=== PATIENT | female | born 1945 | race Caucasian/White ===

== ENCOUNTER 2016-10-04 16:48 | Emergency (ER) | payer MEDICARE, OTHER ==
--- NOTE | ~2016-10-04 | CN ---
Consultation Report [facility] [address] [place]. [address] NAME: AVELINA RUELAS : 43 STATUS : ADM IN [facility]#: [id number] AGE: 70 ADM/REG DATE : 10/04/16 MR#: [id number] REPORT SERV DATE: 10/05/16 DICTATED BY: TORREY ESPOSITO DATE: 10/04/16 REPORT STATUS : Draft TRANSCRIBED BY: JUSTINE DATE: 10/04/16 DATE OF CONSULTATION: 10/04/2016 INDICATION FOR ADMISSION: Chest pressure and low blood pressure. HISTORY OF PRESENT ILLNESS: Ms. Ruelas is a 70-year-old female who dialyzes Monday, Monday, Monday at [facility], left AV fistula. She developed severe weakness and her daughter checked her blood pressure and found it to be 78/36. She was having chest pressure and some diaphoresis at that time. She was transported by EMS to the [facility] Emergency Room. She indicates difficulty with a recent cough which is nonproductive, weakness, decreased appetite, and has had chest pressure intermittently over one week. She also has had coronary artery disease with four-vessel CABG in 2003. PAST MEDICAL HISTORY: 1. End-stage renal disease, dialyzing Monday, Monday, Monday at [facility]. 2. Type 2 diabetes mellitus. 3. Peripheral vascular disease with lower extremity atherectomies and stenting. 4. Coronary artery disease, status post CABG x4 vessels in 2003. 5. Remote [place] congestive heart failure. 6. History of DVT, dyslipidemia, gastroesophageal reflux disease, colon polyps, hiatal hernia, mitral valve replacement, hysterectomy, cataract surgery bilaterally, and anemia. SOCIAL HISTORY: The patient currently denies any tobacco use, cigarette use, and illicit drug use. She is disabled but has good family support. FAMILY HISTORY: Mother of kidney failure but did not dialyze, two aunts with kidney failure, multiple family members with diabetes, and hypertension. REVIEW OF SYSTEMS: HEENT: No change in visual acuity. No epistaxis. No otic infection. No pharyngitis. PULMONARY: No shortness of breath. Cough nonproductive. No hemoptysis. CARDIAC: Upper chest pressure. Denies palpitations but has been weak. Earlier found to be hypotensive with elevation of troponin. GI: Intermittent nausea. No vomiting. No melena. Also has intermittent constipation. : Voids minimally. No gross hematuria. MUSCULOSKELETAL: Pain in lower extremities. INTEGUMENT: No rash. No itching. NEUROLOGIC: No lateralizing weakness. No seizure activity. Remainder of 12-point review of systems is negative. PHYSICAL EXAMINATION: VITAL SIGNS: Blood pressure 130/57, temperature 97.8, and respiratory rate 14. GENERAL: Chronically ill female. Alert, conversive. Consultation Report [facility] [address] [place]. [address] NAME: AVELINA RUELAS : 43 STATUS : ADM IN PAT#: [id number] AGE: 70 ADM/REG DATE : 10/04/16 MR#: [id number] REPORT SERV DATE: 10/05/16 DICTATED BY: TORREY ESPOSITO DATE: 10/04/16 REPORT STATUS : Draft TRANSCRIBED BY: JUSTINE DATE: 10/04/16 HEENT: Eyes, no scleral icterus. Pupils equal, reactive to light. Extraocular movement intact. Nares patent. No discharge. Throat, no injection. Mucous membranes moist. NECK: No thyromegaly or masses, questionable soft carotid bruits. CHEST/LUNGS: Late crackles at bases posteriorly. No wheezing. No dullness to percussion. CARDIAC: Regular rate and rhythm, 2/6 systolic ejection murmur. No gallop. No rub. ABDOMEN: Obese, normoactive bowel sounds. Nontender. No hepatosplenomegaly. BREASTS: Not performed. PELVIC: Not performed. RECTAL: Not performed. EXTREMITIES: Left upper extremity fistula with good bruit, thrill. Lower extremities with no edema. No calf tenderness. DERMIS: No rash. No skin lesions. NEUROLOGIC: Cranial nerves intact. No lateralizing weakness. IMPRESSION: 1. Chest pain with elevated troponin. 2. Coronary artery disease with remote coronary artery bypass grafting 4 vessels in 2003. 3. End-stage renal disease, dialyzing Monday, Monday, Monday at [facility] by left upper extremity AV fistula. 4. Type 2 diabetes mellitus. 5. Severe lower extremity peripheral vascular disease with prior atherectomies and stenting. 6. History of congestive heart failure. 7. Remote DVT. 8. Hyperlipidemia. 9. Gastroesophageal reflux disease. 10.Colon polyps. 11.History of mitral valve replacement. 12.Anemia. PLAN: 1. Labs. 2. Hemodialysis on 10/05/2016. 3. [place] pathology evaluation. CG/MODL Torrey Esposito M.D. / [id number] CC: Consultation Report [facility] [address] [address] NAME: AVELINA RUELAS : 43 STATUS : ADM IN [facility]#: [id number] AGE: 70 ADM/REG DATE : 10/04/16 MR#: [id number] REPORT SERV DATE: 10/05/16 DICTATED BY: TORREY ESPOSITO DATE: 10/04/16 REPORT STATUS : Draft TRANSCRIBED BY: MODL DATE: 10/04/16 Courtney Heaton II
--- NOTE | ~2016-10-04 | DS ---
Discharge Summary [facility] [address] [place]. [address] NAME: AVELINA ROYAL : 43 STATUS : DIS IN PAT#: [id number] AGE: 70 ADM/REG DATE : 10/04/16 MR#: [id number] REPORT SERV DATE: 10/18/16 DICTATED BY: BRIAN SENA JR DATE: 10/17/16 REPORT STATUS : Draft TRANSCRIBED BY: JUSTINE DATE: 10/17/16 Data Collection from hospitalization DISCHARGE DIAGNOSES: 1. End-stage renal disease. 2. Atypical chest pain-resolved. 3. Atherosclerotic cardiovascular disease. 4. Peripheral vascular disease. 5. History of remote chronic obstructive pulmonary disease. 6. Hypotension-resolved. 7. Type 2 diabetes mellitus. 8. History of myocardial infarction. 9. History of congestive heart failure. 10.Peripheral vascular disease. CONSULTATION: Dr. Ata Aranda. PROCEDURES PERFORMED: Cardiac catheterization, 10/06/2016. MEDICATIONS: Aspirin 325 mg with supper, PhosLo 1334 mg with meals, Plavix 75 mg with supper, Colace 100 mg daily, Pepcid 40 mg daily, Neurontin 100 mg at bedtime, NovoLog injection insulin as instructed, Lantus 20 units subcutaneously at bedtime, Mexitil 150 mg every eight hours, Zantac 300 mg with lunch, Crestor 40 mg at bedtime, Senokot 17.2 mg daily. CONDITION AT DISCHARGE: Stable. DISPOSITION: The patient was discharged home on a renal diet with activities as instructed. She would follow up as needed with Cardiology. HOSPITAL COURSE: This is a 70-year-old female, who dialyzes on Mondays, Wednesdays, and Fridays via a left AV fistula. She developed severe weakness and her daughter checked her blood pressure and it was found to be 78/36. She was having chest pressure and some diaphoresis at that time. She was transported via EMS to the [facility] emergency room. She had difficulty with recent cough, which was nonproductive and some weakness and decreased appetite. She also had some chest pressure intermittently over one week. She also had had coronary artery disease with a history of four-vessel coronary artery bypass grafting in 2003. She was admitted to the hospital at this time for further evaluation and treatment. Upon admission, troponin was elevated. Hemodialysis therapy was going to be performed the following day. Labs were going to be obtained. The following day, the patient was seen by Dr. Ata Aranda. The patient had been on hemodialysis over the past six years. She has peripheral vascular disease with previous stenting by Dr. Souza. She had also undergone previous coronary artery bypass grafting and mitral valve clipping for mitral regurgitation. She does have occasional shortness of breath and gets very little in the way of walking because of weakness in her legs and hips. Her EKG revealed sinus rhythm with leftward axis and nonspecific ST-T wave changes, associated with incomplete left bundle-branch block pattern. Chest x-ray showed cardiomegaly. Creatinine was 7.06. Serial troponins would be Discharge Summary [address] [address] NAME: AVELINA ROYAL : 43 STATUS : DIS IN PAT#: [id number] AGE: 70 ADM/REG DATE : 10/04/16 MR#: [id number] REPORT SERV DATE: 10/18/16 DICTATED BY: BRIAN SENA JR DATE: 10/17/16 REPORT STATUS : Draft TRANSCRIBED BY: JUSTINE DATE: 10/17/16 checked as well as EKGs and an echocardiogram. It was felt the patient would need to undergo a cardiac catheterization. Echocardiogram was performed. On the , she had no edema. She had good pain control. She did have PVCs. The patient was taken to the cardiac trestle mainternance laborer, where she underwent the above-mentioned procedure. She tolerated this well and there were no complications. She was found to have severe diffuse right coronary artery disease and 100% distal LMCA occlusion, which was chronic. Left ventricular end-diastolic pressure was 27. There was no significant gradient across the aortic valve. The DUDLEY to the LAD was patent with poor runoff. Saphenous vein [id number] with patent saphenous vein graft to the posterior descending artery was occluded. Medical therapy was recommended for diffuse coronary artery disease, not favorable for percutaneous coronary intervention. Discharge planning was performed. On 10/07/2016, she was alert and cooperative. She continued to do well. Hemodialysis therapy was performed. Discharge instructions were given. Due to her improved and stable condition, she was discharged home with the above-stated instructions. Information collected by: Anahi Parrish I submit the above information as my discharge summary. RUTH/MODL Brian Sena Jr, M.D. / [id number] CC: Courtney Heaton II, WALLACE F. Robert Berglund, M.D.
--- NOTE | ~2016-10-04 | CN ---
Consultation Report [facility] [address] [place]. [address] NAME: AVELINA ROYAL : 43 STATUS : ADM IN PAT#: [id number] AGE: 70 ADM/REG DATE : 10/04/16 MR#: [id number] REPORT SERV DATE: 10/05/16 DICTATED BY: ELENA ARANDA DATE: 10/04/16 REPORT STATUS : Draft TRANSCRIBED BY: MODShannon DATE: 10/04/16 DATE OF CONSULTATION: 10/04/2016 HISTORY OF PRESENT ILLNESS: This 70-year-old white female, nonsmoker, who was admitted for weakness and occasional chest discomfort. Her troponin is mildly elevated at 1.35 with serial levels pending; this lady is complicated in that she has chronic kidney disease and has been on hemodialysis for the last six years, probably due to diabetic nephropathy. She also has peripheral vascular disease with previous stenting by Dr. Souza and has had previous bypass grafting for coronary artery disease as well as previous myocardial infarction. At [place], she underwent mitral valve clipping for mitral regurgitation. She has occasional shortness of breath and gets very little in the way of walking because of weakness and pain in her legs and hips. Her EKG shows sinus rhythm with leftward axis and nonspecific ST-T wave changes associated with incomplete left bundle branch block pattern. Chest x-ray shows cardiomegaly. BUN is 36 today with a creatinine of 7.06. Blood sugar of 229 mg percent. Troponin level is 1.35. White blood cell count 8.4 thousand, platelet count 134,000, hematocrit 37%. At the present time, she denies short of breath, having chest pain. She has multiple family members in the room. DNR status is noted. She sees Dr. Sheth as her pewter caster and Dr. Love as her primary care provider, and Dr. Menard is her warp bleaching vat tender. There is a family history of stroke. PREVIOUS SURGERIES: Include her bypass grafting, mitral valve clipping, and peripheral stenting by Dr. Souza. She is intolerant to sulfa drugs, Rocephin, and kiwi plant with anaphylaxis and swollen mouth eating that fruit. She is a and has three healthy children, all grown. PHYSICAL EXAMINATION: VITAL SIGNS: Blood pressure 130/60. HEENT: Head is normocephalic. Eyes, PERRLA. Nose has no epistaxis. SKIN: Clear of ulceration. NECK: Supple. CHEST: Clear. HEART: Has regular rhythm. There is a faint grade 1/6 systolic murmur at the lower left sternal border. I do not hear an S3 gallop tonight. ABDOMEN: Overweight. I do not feel a fluid wave. EXTREMITIES: Has no clubbing, edema, or cyanosis. NEUROLOGIC: Intact. CLINICAL IMPRESSION: 1. Chest discomfort with mild troponin elevation-known coronary artery disease with previous bypass grafting and myocardial infarction. 2. End-stage renal disease, on hemodialysis. 3. Diabetes mellitus with diabetic nephropathy. Consultation Report [address] [place]. [address] NAME: AVELINA ROYAL : 43 STATUS : ADM IN [facility]#: [id number] AGE: 70 ADM/REG DATE : 10/04/16 MR#: [id number] REPORT SERV DATE: 10/05/16 DICTATED BY: ELENA ARANDA DATE: 10/04/16 REPORT STATUS : Draft TRANSCRIBED BY: JUSTINE DATE: 10/04/16 4. Peripheral vascular disease. 5. History of mitral valve clipping for mitral regurgitation. 6. Overweight. RECOMMENDATIONS: 1. Serial troponins. 2. Check EKGs and an echocardiogram. 3. Dr. Menard will continue to follow her when he returns to call in the morning. She is comfortable tonight. RB/TENZINL Elena Aranda M.D. / [id number] CC: Courtney Heaton II, WALLACE F.
[~2016-10-04 16:48] MED LIST: ASA5GR PO; ASCRIPTIN PO; COREG12 PO; COREG25 PO; COREG3 PO; COREG6 PO; DEMA20 PO; DILT-XR180 MG PO; DILTIAZEM; FISH-EPA1000 MG PO; HALF81 PO; LANTUS SC; NEUR100 PO; NEUR300 PO; NEUR400 PO; NITROII20C TOP; NITROII30C TOP; NITROSTAT0.4 MG SL; NORV5 PO; NOVOLOG SC; PHOSLO 667 MG PO; PHOSLO PO; PLAVIX PO; PRILO PO; PRIN10 PO; PROCRIT; RANITIDINE300 MG PO; TANDEM PLUS OR; VYTORIN 10/40 T1 TAB PO; ZANTAC 150 PO; ZOCOR40 PO
[2016-10-04 17:24] LABS: BASOPHILS 0.2 %; BASOPHILS ABSOLUTE 0.02 10/3/uL (0.0-0.16); EOSINOPHILS 1.5 %; EOSINOPHILS ABSOLUTE 0.13 10/3/uL (0.0-0.53); ER CBC TAT 0 Hrs 05 Mins; HEMOGLOBIN 11.9 g/dL (12.0-16.0); IMMATURE GRANULOCYTES 0.2 %; IMMATURE GRANULOCYTES ABSOLUTE 0.02 10/3/uL (0.0-0.11); LYMPHOCYTES 11.7 %; LYMPHOCYTES ABSOLUTE 0.98 10/3/uL (0.67-4.30); MANUAL DIFF NO %; MEAN CORPUS HGB CONC 32.2 g/dL (32.0-36.0); MEAN CORPUSCULAR HEMOGLOB 28.7 pg (26.0-34.0); MEAN CORPUSCULAR VOLUME 89.2 fL (80-100); MEAN PLATELET VOLUME 9.7 fL (9.2-13.0); MONOCYTES 8.6 %; MONOCYTES ABSOLUTE 0.72 10/3/uL (0.21-1.20); NEUTROPHILS 77.8 %; NEUTROPHILS ABSOLUTE 6.53 10/3/uL (2.02-8.40); PLATELET COUNT 134 10/3/uL (150-400); RED CELL COUNT 4.15 10/6/uL (4.0-5.6); WHITE BLOOD CELLS 8.4 10/3/uL (4.5-10.5)
[2016-10-04 17:31] LABS: INTERNATIONAL NORMAL RATI 1.2 UNITS (-); PARTIAL THROMBO TIME 33.3 SEC (22.5-37.2); PROTIME (NOT ORD) 15.5 SEC (12.0-14.5)
[2016-10-04 17:39] LABS: BUN (BLOOD UREA NITROGEN) 36 MG/DL (6-23); CALCIUM, SERUM 8.8 MG/DL (8.5-10.4); CHLORIDE, SERUM 98 MMOL/L (96-112); CO2 (CARBON DIOXIDE) 30 MMOL/L (24-34); CREATININE 7.06 MG/DL (0.55-1.02); GFR AFRICAN AMERICAN 6 ML/MIN (>=60); GFR NON AFRICAN AMERICAN 5 ML/MIN (>=60); GLUCOSE, SERUM 229 MG/DL (60-99); POTASSIUM, SERUM 4.9 MMOL/L (3.5-5.3); SODIUM, SERUM 133 MMOL/L (135-148)
[2016-10-04 17:40] LABS: CHEST PAIN PROFILE TAT 0 Hrs 21 Mins; TROPONIN I 1.35 NG/ML (<0.05)
[2016-10-04] MEDS ORDERED: NOVOLOG SC (18:22)
[2016-10-04] MEDS ORDERED: PHOSLO PO (18:23)
[2016-10-04] MEDS ORDERED: LANTUS SC (18:23)
[2016-10-04] MEDS ORDERED: NEUR100 PO (18:24)
[2016-10-04] MEDS ORDERED: PLAVIX PO (18:24)
[2016-10-04] MEDS ORDERED: ASA5GR PO (18:24)
[2016-10-04] MEDS ORDERED: ZOCOR40 PO (18:24)
[2016-10-04] MEDS ORDERED: ZANTAC300 MG PO (18:25)
[2016-10-04] MEDS ORDERED: SENTAB PO (18:26)
[2016-10-04] MEDS ORDERED: DSS PO (18:27)
[2016-10-04 21:30] LABS: TROPONIN I 1.1 NG/ML (<0.05)
[2016-10-04 23:20] LABS: ULTRASENSITIVE TSH 0.902 MCIU/ML (0.358-3.740)
[2016-10-05 05:28] LABS: BASOPHILS 0.3 %; BASOPHILS ABSOLUTE 0.02 10/3/uL (0.0-0.16); EOSINOPHILS 2.8 %; EOSINOPHILS ABSOLUTE 0.21 10/3/uL (0.0-0.53); HEMATOCRIT 33.6 % (36.0-48.0); HEMOGLOBIN 10.7 g/dL (12.0-16.0); IMMATURE GRANULOCYTES 0.3 %; IMMATURE GRANULOCYTES ABSOLUTE 0.02 10/3/uL (0.0-0.11); LYMPHOCYTES 20.8 %; LYMPHOCYTES ABSOLUTE 1.53 10/3/uL (0.67-4.30); MEAN CORPUS HGB CONC 31.8 g/dL (32.0-36.0); MEAN CORPUSCULAR HEMOGLOB 28.5 pg (26.0-34.0); MEAN CORPUSCULAR VOLUME 89.4 fL (80-100); MEAN PLATELET VOLUME 9.7 fL (9.2-13.0); MONOCYTES 10.2 %; MONOCYTES ABSOLUTE 0.75 10/3/uL (0.21-1.20); NEUTROPHILS 65.6 %; NEUTROPHILS ABSOLUTE 4.84 10/3/uL (2.02-8.40); PLATELET COUNT 127 10/3/uL (150-400); RBC DISTRIBUTION WIDTH 14.9 % (12.0-16.0); RED CELL COUNT 3.76 10/6/uL (4.0-5.6); WHITE BLOOD CELLS 7.4 10/3/uL (4.5-10.5)
[2016-10-05 05:31] LABS: MANUAL DIFF NO %
[2016-10-05 05:53] LABS: ALBUMIN 3.1 G/DL (3.5-5.0); BUN (BLOOD UREA NITROGEN) 46 MG/DL (6-23); CALCIUM, SERUM 8.5 MG/DL (8.5-10.4); CHLORIDE, SERUM 96 MMOL/L (96-112); CO2 (CARBON DIOXIDE) 29 MMOL/L (24-34); CREATININE 7.79 MG/DL (0.55-1.02); GFR AFRICAN AMERICAN 5 ML/MIN (>=60); GFR NON AFRICAN AMERICAN 5 ML/MIN (>=60); GLUCOSE, SERUM 135 MG/DL (60-99); PHOSPHORUS, SERUM 6.5 MG/DL (2.5-4.5); POTASSIUM, SERUM 4.2 MMOL/L (3.5-5.3); SODIUM, SERUM 135 MMOL/L (135-148); TROPONIN I 1.03 NG/ML (<0.05)
[2016-10-06 05:54] LABS: BASOPHILS 0.3 %; BASOPHILS ABSOLUTE 0.02 10/3/uL (0.0-0.16); EOSINOPHILS 1.8 %; EOSINOPHILS ABSOLUTE 0.13 10/3/uL (0.0-0.53); HEMATOCRIT 34.9 % (36.0-48.0); HEMOGLOBIN 11.2 g/dL (12.0-16.0); IMMATURE GRANULOCYTES 0.1 %; IMMATURE GRANULOCYTES ABSOLUTE 0.01 10/3/uL (0.0-0.11); LYMPHOCYTES 19.1 %; LYMPHOCYTES ABSOLUTE 1.39 10/3/uL (0.67-4.30); MANUAL DIFF NO %; MEAN CORPUS HGB CONC 32.1 g/dL (32.0-36.0); MEAN CORPUSCULAR HEMOGLOB 28.8 pg (26.0-34.0); MEAN CORPUSCULAR VOLUME 89.7 fL (80-100); MEAN PLATELET VOLUME 9.7 fL (9.2-13.0); MONOCYTES 9.8 %; MONOCYTES ABSOLUTE 0.71 10/3/uL (0.21-1.20); NEUTROPHILS 68.9 %; PLATELET COUNT 139 10/3/uL (150-400); RED CELL COUNT 3.89 10/6/uL (4.0-5.6); WHITE BLOOD CELLS 7.3 10/3/uL (4.5-10.5)
[2016-10-06 06:06] LABS: CALCIUM, SERUM 8.6 MG/DL (8.5-10.4); CHLORIDE, SERUM 100 MMOL/L (96-112); CO2 (CARBON DIOXIDE) 26 MMOL/L (24-34); POTASSIUM, SERUM 4.5 MMOL/L (3.5-5.3); SODIUM, SERUM 134 MMOL/L (135-148)
[2016-10-06 06:07] LABS: BUN (BLOOD UREA NITROGEN) 33 MG/DL (6-23); CHOL/HDL RATIO(NOT ORDER) 3.7 (0-5); CHOLESTEROL 131 MG/DL (< 200); CREATININE 5.94 MG/DL (0.55-1.02); GFR AFRICAN AMERICAN 8 ML/MIN (>=60); GFR NON AFRICAN AMERICAN 7 ML/MIN (>=60); GLUCOSE, SERUM 83 MG/DL (60-99); HDL CHOLESTEROL 35 MG/DL (> 49); LDL CHOLESTEROL 73 MG/DL (< 130); NON-HDL CHOLESTEROL 96 MG/DL (< 160); TRIGLYCERIDE 115 MG/DL (< 150)
[2016-10-07 05:41] LABS: HEMATOCRIT 34.9 % (36.0-48.0); HEMOGLOBIN 11.3 g/dL (12.0-16.0); MEAN CORPUS HGB CONC 32.4 g/dL (32.0-36.0); MEAN CORPUSCULAR HEMOGLOB 28.8 pg (26.0-34.0); MEAN PLATELET VOLUME 9.8 fL (9.2-13.0); PLATELET COUNT 131 10/3/uL (150-400); RBC DISTRIBUTION WIDTH 15.2 % (12.0-16.0); RED CELL COUNT 3.92 10/6/uL (4.0-5.6); WHITE BLOOD CELLS 8.1 10/3/uL (4.5-10.5)
[2016-10-07 05:44] LABS: MANUAL DIFF YES %
[2016-10-07 06:13] LABS: BAND NEUTROPHILS 2 %; EOSINOPHILS 2 %; EOSINOPHILS ABSOLUTE (CALC) 0.16 10/3/uL (0.0-0.53); LYMPHOCYTES 18 %; LYMPHOCYTES ABSOLUTE (CALC) 1.46 10/3/uL (0.67-4.30); MONOCYTES 3 %; MONOCYTES ABSOLUTE (CALC) 0.24 10/3/uL (0.21-1.20); NEUTROPHILS ABSOLUTE (CALC) 6.24 10/3/uL (2.02-8.40); PLATELET ESTIMATE SLT DEC (ADEQUATE); RBC MORPHOLOGY NORM (NORMAL); SEGMENTED NEUTROPHIL (0) 75 %; TOTAL NUCLEATED CELLS 100; TOXIC GRANULATION 1+
[2016-10-07 06:53] LABS: CALCIUM, SERUM 8.5 MG/DL (8.5-10.4); CHLORIDE, SERUM 98 MMOL/L (96-112); CO2 (CARBON DIOXIDE) 25 MMOL/L (24-34); GFR AFRICAN AMERICAN 6 ML/MIN (>=60); GFR NON AFRICAN AMERICAN 5 ML/MIN (>=60); GLUCOSE, SERUM 93 MG/DL (60-99); SODIUM, SERUM 134 MMOL/L (135-148)
[2016-10-07 06:55] LABS: BUN (BLOOD UREA NITROGEN) 47 MG/DL (6-23); CREATININE 7.63 MG/DL (0.55-1.02); POTASSIUM, SERUM 5.5 MMOL/L (3.5-5.3)
[2016-10-07 07:20] LABS: ASCORBIC ACID (UR NOT ORDER) NEG (NEG); BILIRUBIN, URINE NEGATIVE (NEG); KETONE, URINE NEGATIVE (NEG); LEUKOCYTE ESTERASE(NOT OR MOD (NEG)
[2016-10-07 07:24] LABS: WBC (NOT ORDERED) (RFLEX) > 182 (0-5)
[2016-10-07] MEDS ORDERED: PEP20 PO (14:30)
[2016-10-07] MEDS ORDERED: LANTUS SC (14:32)
[2016-10-07] MEDS ORDERED: MEXITIL 150 MG150 MG PO (14:33)
[2016-10-07] MEDS ORDERED: CRESTOR40 MG PO (14:34)
== END 2016-10-07 15:12 | disposition home or self-care (01) ==
LOC: ER 16:48
PROVIDERS: Emergency Medicine; Internal Medicine Cardiovascular Disease; Internal Medicine Clinical Cardiac Electrophysiology; Internal Medicine Nephrology
DX: R53.1 Weakness (principal); R94.31 Abnormal electrocardiogram [ECG] [EKG]; I11.0 Hypertensive heart disease with heart failure; I50.9 Heart failure, unspecified; I25.2 Old myocardial infarction; K21.9 Gastro-esophageal reflux disease without esophagitis; E11.9 Type 2 diabetes mellitus without complications; Z95.5 Presence of coronary angioplasty implant and graft; Z87.01 Personal history of pneumonia (recurrent); Z95.810 Presence of automatic (implantable) cardiac defibrillator; Z86.718 Personal history of other venous thrombosis and embolism; Z88.1 Allergy status to other antibiotic agents; Z88.2 Allergy status to sulfonamides; Z91.040 Latex allergy status; Z91.018 Allergy to other foods; Z79.4 Long term (current) use of insulin; Z79.82 Long term (current) use of aspirin; Z79.899 Other long term (current) drug therapy
CPT/HCPCS: 36600; 71010; 80048; 80061; 80069; 81001; 82330; 82803; 82947; 82962; 83735; 83880; 84132; 84295; 84443; 84484; 85014; 85025; 85610; 85730; 87086; 93005; 93459; 99152; 99153; 99285; A9270-GY; C1769; C8929; G0257; J2250; J3010; Q9957; Q9967

== ENCOUNTER 2016-10-14 10:12 | Emergency (ER) | payer MEDICARE, OTHER ==
[~2016-10-14 10:12] MED LIST changes: +CRESTOR40 MG PO; +DSS PO; +MEXITIL 150 MG150 MG PO; +PEP20 PO; +SENTAB PO; +ZANTAC300 MG PO
[2016-10-14 11:09] LABS: BASOPHILS 0.3 %; BASOPHILS ABSOLUTE 0.02 10/3/uL (0.0-0.16); EOSINOPHILS 6.1 %; ER CBC TAT 0 Hrs 07 Mins; HEMOGLOBIN 11.8 g/dL (12.0-16.0); IMMATURE GRANULOCYTES 0.2 %; IMMATURE GRANULOCYTES ABSOLUTE 0.01 10/3/uL (0.0-0.11); LYMPHOCYTES 17.4 %; LYMPHOCYTES ABSOLUTE 1.14 10/3/uL (0.67-4.30); MANUAL DIFF NO %; MEAN CORPUS HGB CONC 31.9 g/dL (32.0-36.0); MEAN CORPUSCULAR HEMOGLOB 29.1 pg (26.0-34.0); MEAN CORPUSCULAR VOLUME 91.1 fL (80-100); MEAN PLATELET VOLUME 9.3 fL (9.2-13.0); MONOCYTES 10.9 %; MONOCYTES ABSOLUTE 0.71 10/3/uL (0.21-1.20); NEUTROPHILS 65.1 %; NEUTROPHILS ABSOLUTE 4.26 10/3/uL (2.02-8.40); PLATELET COUNT 136 10/3/uL (150-400); RBC DISTRIBUTION WIDTH 15.8 % (12.0-16.0); RED CELL COUNT 4.06 10/6/uL (4.0-5.6); WHITE BLOOD CELLS 6.5 10/3/uL (4.5-10.5)
[2016-10-14 11:17] LABS: INTERNATIONAL NORMAL RATI 1.3 UNITS (-); PARTIAL THROMBO TIME 42.4 SEC (22.5-37.2); PROTIME (NOT ORD) 15.6 SEC (12.0-14.5)
[2016-10-14 11:27] LABS: CALCIUM, SERUM 8.8 MG/DL (8.5-10.4); CHLORIDE, SERUM 99 MMOL/L (96-112); GLUCOSE, SERUM 79 MG/DL (60-99); SODIUM, SERUM 137 MMOL/L (135-148)
[2016-10-14 11:28] LABS: BUN (BLOOD UREA NITROGEN) 20 MG/DL (6-23); CO2 (CARBON DIOXIDE) 35 MMOL/L (24-34); CREATININE 4.36 MG/DL (0.55-1.02); GFR AFRICAN AMERICAN 11 ML/MIN (>=60); GFR NON AFRICAN AMERICAN 10 ML/MIN (>=60); POTASSIUM, SERUM 3.8 MMOL/L (3.5-5.3)
[2016-10-14 11:29] LABS: CHEST PAIN PROFILE TAT 0 Hrs 27 Mins
== END 2016-10-14 14:20 | disposition admitted as inpatient to this hospital (09) ==
LOC: ER 10:12
PROVIDERS: Emergency Medicine
DX: R07.89 Other chest pain (principal); I50.9 Heart failure, unspecified; E11.22 Type 2 diabetes mellitus with diabetic chronic kidney disease; N18.9 Chronic kidney disease, unspecified; I73.9 Peripheral vascular disease, unspecified; Z88.2 Allergy status to sulfonamides; Z91.040 Latex allergy status; Z91.02 Food additives allergy status; Z88.1 Allergy status to other antibiotic agents; Z79.4 Long term (current) use of insulin; Z79.82 Long term (current) use of aspirin; Z79.899 Other long term (current) drug therapy; Z99.2 Dependence on renal dialysis
CPT/HCPCS: 71010; 80048; 83735; 84484; 85025; 85610; 85730; 93005; 99285